=== PATIENT | male | born 1970 | race Two or more races ===

== ENCOUNTER 2019-11-26 04:01 | Emergency (ER) | payer SELFPAY ==
--- NOTE | 2019-11-26 04:01 | NUR ---
SEE DOWNTIME TRIAGE NOTE
--- NOTE | 2019-11-26 04:01 | NUR ---
jo from street for possible etoh, found sleeping in his car. pt answering question approprietly, -sob, -cp. placed on bed 13, vss. pending er providerbeba mcleod
--- NOTE | 2019-11-26 04:14 | NUR ---
[employer] officers at bedside
--- NOTE | 2019-11-26 04:22 | NUR ---
per teresa. pt will not be in custody
[2019-11-26 12:54] VITALS: BP 118/71
--- NOTE | 2019-11-26 12:55 | NUR ---
Patient discharged to home in stable condition. Written and verbal after care instructions given. Patient verbalizes understanding of instruction.
== END 2019-11-26 12:55 | disposition home or self-care (01) ==
LOC: ER 04:01
DX: F10.129 Alcohol abuse with intoxication, unspecified (principal); Y90.9 Presence of alcohol in blood, level not specified